=== PATIENT | female | born 1990 | race African-American/Black ===

== ENCOUNTER 2021-06-04 13:29 | Emergency (ER) | payer OTHER ==
[~2021-06-04] VITALS: Ht 167.6 cm; Wt 47.0 kg
[2021-06-04 17:40] VITALS: BP 149/75
[2021-06-04] MEDS ORDERED: KETOROLAC 60 MG/2 ML VIAL. IM ONE (18:00)
--- NOTE | 2021-06-04 18:34 | RAD ---
Study: XR CHEST 1V Indication: Chest pain. Comparison: None. Findings: The cardiomediastinal silhouette and mercedes are within normal limits. No localized airspace opacity, pl eural effusion or pneumothorax. Impression: No acute radiographic abnormality of the chest. Electronically signed by: MARY TOUSSAINT MD (06/04/2021 6:31 PM) [facility]
[2021-06-04] MEDS ORDERED: METO50TA4 PO (19:08)
--- NOTE | 2021-06-04 19:09 | PHYS DOC ---
Past Medical History Past Surgical History: No Surgical History (MARYCARMEN PINEDA APRN) Smoking Status: Never Smoker Alcohol Use: Occasionally (MARYCARMEN PINEDA APRN) General Adult EDM: Chief Complaint: CHEST PAIN HPI: HPI: 30-year-old female presents to the emergency department complaining of sternal chest discomfort with palpation and cough and deep inspiration/expiration for the past 2 days. Patient denies injury to her chest, denies shortness of breath or chest congestion, states she did have the COVID-19 virus last month, patient denies recent fever or chills, denies abdominal pain, nausea, vomiting, diarrhea. Patient denies body aches or body pains. Patient denies other physical complaints or physical concerns. (MARYCARMEN PINEDA APRN) Review of Systems: Review of Systems: 14 body systems of review of systems have been reviewed. See HPI for pertinent positives and negative responses, otherwise all other systems are negative, nonpertinent or noncontributory. Constitutional: Negative except as outlined in HPI above. Skin: Negative except as outlined in HPI above. Eyes: Negative except as outlined in HPI above. HENT: Negative except as outlined in HPI above. Respiratory: Negative except as outlined in HPI above. Cardiovascular: Negative except as outlined in HPI above. GI: Negative except as outlined in HPI above. : Negative except as outlined in HPI above. Musculoskeletal: Negative except as outlined in HPI above. Integument: Negative except as outlined in HPI above. Neurologic: Negative except as outlined in HPI above. Endocrine: Negative except as outlined in HPI above. Lymphatic: Negative except as outlined in HPI above. Psychiatric: Negative except as outlined in HPI above. (MARYCARMEN PINEDA APRN) Heart Score: C/O Chest Pain: Yes HEART Score for Chest Pain: HEART Score for Chest Pain Response (Comments) Value History Slighlty/Non-Suspicious 0 ECG Normal 0 Age < 45 0 Risk Factors No Risk Factors 0 Total 0 Risk Factors: Risk Factors: DM, Current or recent (<one month) smoker, HTN, HLP, family history of CAD, obesity. Risk Scores: Score 0 - 3: 2.5% MACE over next 6 weeks - Discharge Home Score 4 - 6: 20.3% MACE over next 6 weeks - Admit for Clinical Observation Score 7 - 10: 72.7% MACE over next 6 weeks - Early Invasive Strategies (MARYCARMEN PINEDA APRN) Current Medications: Current Medications Medications (Trade) Dose Ordered Sig/Johnson Start Time Stop Time Status Last Admin Dose Admin Ketorolac Tromethamine (Toradol Im) 60 mg 1X ONCE 06/04/21 18:00 06/04/21 18:01 DC 06/04/21 18:41 60 MG (MARYCARMEN PINEDA APRN) Allergies: Allergies: Allergies Coded Allergies Type Severity Reaction Last Updated Verified No Known Drug Allergies 06/04/21 No (MARYCARMEN PINEDA APRN) Physical Exam: PE: Constitutional: Well developed, well nourished, no acute distress, non-toxic appearance. 30-year-old female in no apparent distress. HENT: Normocephalic, atraumatic. Eyes: Conjunctiva normal, no discharge. Neck: Normal range of motion, no stridor. Cardiovascular: No cyanosis appreciated, distal cap refill less than 2 seconds. Lungs & Thorax: Patient is in no respiratory distress, no audible adventitious lung sounds appreciated. Pain to palpation of the anterior thorax along the upper third of the sternum, no bruising, no crepitus appreciated. Lung sounds clear to auscultation all lung lorenzo. Abdomen: Nontender, no abnormalities noted. Skin: Warm, dry, no erythema, no rash. Back: No tenderness, no deformities. Extremities: No tenderness, no cyanosis, no clubbing, ROM intact, no edema. Neurologic: Alert and oriented X 3, normal motor function, normal sensory function, no focal deficits noted. Psychologic: Affect normal, judgement normal, mood normal. (MARYCARMEN PINEDA APRN) Current Patient Data: Vital Signs: Vital Signs Date Time Temp Pulse Resp B/P (MAP) Pulse Ox O2 Delivery O2 Flow Rate FiO2 06/04/21 17:40 98.3 80 16 149/75 (99) 99 Room Air 98.3 (MARYCARMEN PINEDA APRN) EKG: EKG: EKG performed at 1342 by ED nursing staff shows a normal sinus rhythm without other ectopy, 86 bpm, ME interval 0.174, QTc interval 0.453, no acute STEMI, no ACS, no acute ischemia appreciated, EKG interpreted by ED attending physician Dr. Posadas. (MARYCARMEN PINEDA APRN) Radiology/Procedures: Radiology/Procedures: PATIENT: ANTONINO FIGUEROA ACCOUNT: [id number] : 1990 LOCATION: ER AGE: 30 SEX: F EXAM STATUS: REG ER ORD. PHYSICIAN: MARYCARMEN PINEDA APRN REASON: Chest pain PROCEDURE: CHEST AP ONLY Study: XR CHEST 1V Indication: Chest pain. Comparison: None. Findings: The cardiomediastinal silhouette and mercedes are within normal limits. No localized airspace opacity, pleural effusion or pneumothorax. Impression: No acute radiographic abnormality of the chest. Electronically signed by: MARY TOUSSAINT MD (06/04/2021 6:31 PM) [facility] (MARYCARMEN PINEDA APRN) Course & Med Decision Making: Course & Med Decision Making Pertinent Labs and Imaging studies reviewed. (See chart for details) 30-year-old female, vital signs reviewed, resents emergency department concerning sternal chest discomfort with movement and palpation for the past 2 days. Physical examination nonconcerning for acute cardio respiratory disease process, this is most likely a musculoskeletal chest pain of unknown etiology. EKG is unremarkable, will order chest x-ray to rule out pulmonary process, will give IM injection of Toradol. Patient is asking for prescription refill of metoprolol ER 50 mg daily as she missed her last primary care physician appointment. Patient's chest x-ray is unremarkable, on reevaluation of the patient, patient reports pain relief with medication given. Discussed with patient this is a musculoskeletal chest wall pain, discussed with patient will prescribe blood pressure medication, strict follow-up with primary care for ongoing aches and pains. Patient is amenable to ED discharge planning. (MARYCARMEN PINEDA APRN) Course & Med Decision Making I was the Attending physician on the above date of service of this patient. This patient was evaluated, examined, treated, and dispositioned from the emergency department by the mid-level practitioner. Although I was working at the time , no assistance was requested. Electronically signed, Jess Anderson DO (JESS ANDERSON DO) Colby Disclaimer: Colby Disclaimer: This electronic medical record was generated, in whole or in part, using a voice recognition dictation system. (MARYCARMEN PINEDA APRN) Departure Departure Impression: Primary Impression: Chest wall pain Disposition: HOME / SELF CARE / HOMELESS Condition: GOOD Referrals: UNKNOWN PCP NAME (PCP) Patient Instructions: Chest Wall Pain Additional Instructions: You were seen today in the emergency department for chest wall pain. An EKG and chest x-ray did not reveal any concerning findings that would warrant admission to the hospital or emergent intervention. Please continue to take Tylenol and/or an NSAID such as Motrin or Naprosyn for ongoing aches and pains. I have represcribed your metoprolol as you requested. Please take as directed, please follow-up with your primary care physician Dr. Field bender for ongoing evaluations. Thank you for visiting our Emergency Department. It was a pleasure taking care of you today in the emergency department and we appreciate you trusting us with your care. If any additional problems come up don't hesitate to return to visit us. Please follow up with your primary care provider so they can plan additional care if needed and know about the problem that you had. If symptoms worsen come back to the Emergency Department. Any concerning symptoms that start such as chest pain, shortness of air, weakness or numbness on one side of the body, running high fevers or any other concerning symptoms return to the ER. EMERGENCY DEPARTMENT GENERAL DISCHARGE INSTRUCTIONS Thank you for coming to [facility] Emergency Department (ED) today and trusting us with you care. We trust that you had a positive experience in our Emergency Department. If you wish to speak to the department management, you may call the Director at [phone]. YOUR FOLLOW UP INSTRUCTIONS ARE FOLLOWS: 1. Do you have a private Doctor? If you do not have a private doctor, please ask for a resource list of physicians or clinics that may be able to assist you with follow up care. 2. The Emergency Physicain has interpreted your x-rays. The X-Ray specialist will also review them. If there is a change in the findings, you will be notified in 48 hours when at all possible. 3. A lab test or culture has been done, your results will be reviewed and you will be notified if you need a change in treatment. ADDITIONAL INSTRUCTIONS AND INFORMATION: 1. Your care today has been supervised by a physician who is specially trained in emergency care. Many problems require more than one evaluation for a complete diagnosis and treatment. We recommend that you schedule your follow up appointment as recommended to ensure complete treatment of you illness or injury. If you are unable to obtain follow up care and continue to have a problem, or if your condition worsens, we recommend that you return to the ED. 2. We are not able to safely determine your condition over the phone nor are we able to give sound medical advice over the phone. For these safety reasons, if you call for medical advice we will ask you to come to the ED for further evaluation. 3. If you have any questions regarding these discharge instructions please call the ED at [phone]. SAFETY INFORMATION: In the interest of safety, wellness, and injury prevention; we encourage you to wear your sealbelt, if you smoke; quite smoking, and we encourage family to use a protective helmet for bicycling and other sporting events that present an increased risk for head injury. IF YOUR SYMPTOMS WORSEN OR NEW SYMPTOMS DEVELOP, OR YOU HAVE CONCERNS ABOUT YOUR CONDITION; OR IF YOUR CONDITION WORSENS WHILE YOU ARE WAITING FOR YOUR FOLLOW UP APPOINTMENT; EITHER CONTACT YOUR PRIMARY CARE DOCTOR, THE PHYSICIAN WHOSE NAME AND NUMBER YOU WERE GIVEN, OR RETURN TO THE ED IMMEDIATELY. Scripts Ibuprofen (IBUPROFEN) 600 Mg Tablet 600 MG PO PRN Q6HRS PRN for INFLAMMATION, #30 TAB 0 Refills Prov: MARYCARMEN PINEDA APRN 06/04/21 Metoprolol Succinate (Toprol XL) 50 Mg Tab.er.24h 50 MG PO DAILY for FOR HYPERTENSION, #30 TAB.SR 0 Refills Prov: MARYCARMEN PINEDA APRN 06/04/21 MARYCARMEN PINEDA APRN Jun 04, 2021 19:09 JESS ANDERSON DO Jun 06, 2021 00:25
[2021-06-04] MEDS ORDERED: IBUP-1007 PO (19:14)
--- NOTE | 2021-06-05 01:34 | EKG ---
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
== END 2021-06-04 19:43 | disposition home or self-care (01) ==
LOC: ER 13:29
DX: R07.2 Precordial pain (principal); R05.9 Cough, unspecified
CPT/HCPCS: 71045; 93005; 96372; 99283; J1885